=== PATIENT | male | born 1965 | race Caucasian/White ===

== ENCOUNTER 2021-03-10 09:44 | Outpatient (CLI) | payer OTHER, SELFPAY ==
--- NOTE | 2021-03-10 | NMCV_ITS ---
NM lew perf SPECT r/s* [id number] Sundeep Crowder Age: 56 Gender: M : 1965 Exam Date: 03/10/2021 08:11 Ordering Phys: Tato Arciniega Technologist: MAIKOL Ambrosio Exam Location: [facility] Indications: CHEST PAIN STRESS TEST Please see separate stress test report in [facility] for full findings IMAGE PROTOCOL Rest/Stress 1 Exercise Day Radiopharmaceutical Dose (mCi) Administration Site Administered by Rest: Tc-99m 10.6 IV MAIKOL Heller Sestamibi Stress:Tc-99m 32.4 IV MAIKOL Heller Sestamimic Rest: 10-Mar-2021 60 Discovery 630 Stress: 10-Mar-2021 30 Discovery 630 Radiopharmaceutical was injected at 96 % maximum heart rate. Images obtained in supine and prone position. SPECT RESULTS Technical Quality: Excellent Raw Data Analysis: Normal Image Corrections: No attenuation or motion correction applied Summed Stress Score: 0 Summed Rest Score: 0 Summed Difference Score: 0 PERFUSION FINDINGS Medium-sized area of fixed perfusion for noted in basal to mid inferior and inferolateral wall in the absence of wall motion abnormality appears to be an artifact FUNCTIONAL RESULTS (calculated via Gated SPECT) Stress Image LV EF (%): 82 Stress EDV (mL):65 TID: 0.73 Stress ESV (mL):12 Rest Image LV EF (%): 82 FUNCTIONAL FINDINGS: There is normal left ventricular systolic function. IMPRESSIONS This study is negative for ischemia. EKG segment will be documented separately. Chiki Sanches MD (Electronically Signed) Final Date: 10 March 2021 18:40 S
== END 2021-03-10 09:45 | disposition home or self-care (01) ==
LOC: CDL 03-13 09:54
PROVIDERS: PCP Family Medicine; Visit Provider Clinical Nurse Specialist Adult Health
DX: R07.9 Chest pain, unspecified (principal)
CPT/HCPCS: 78452; A9500

== ENCOUNTER → 2022-08-31 12:11 | Outpatient (BNVA) | payer OTHER, SELFPAY | PROVIDERS: PCP Family Medicine; Visit Provider Family Medicine | DX: R10.13 Epigastric pain (principal); R11.0 Nausea; E03.9 Hypothyroidism, unspecified | CPT/HCPCS: 80053; 80061; 82150; 85007; 85025; 86140 ==

== ENCOUNTER 2022-09-07 09:36 | Outpatient (CLI) | payer OTHER, SELFPAY ==
--- NOTE | 2022-09-07 10:00 | US_ITS ---
WS: [id number] Abdomen ultrasound, 09/07/2022 Clinical Data: R10.13 - Epigastric pain Comparison: None. Findings: The pancreas shows no cyst, pseudocyst or evidence of pancreatitis. The liver shows no cysts, masses or dilated intrahepatic ducts. Liver is normal in size with consiste nt echotexture. There is normal portal venous flow. The gallbladder has numerous stones. There is thickening of the gallbladder wall can indicate acute a nd/or chronic cholecystitis.. The wall measures 1.4 cm with no pericholecystic fluid. The common bile duct is 0.9 cm and no intraductal abnormalities are noted. The right kidney is 11.2 cm. No cysts, masses or hydronephrosis is seen. The left kidney is 10.4 cm. No cysts, masses or hydronephrosis is seen. The abdominal aorta is not dilated and the inferior vena cava has normal flow. No vascular abnormalit ies are seen. The spleen measures 10.7 cm and there are no intrasplenic masses or capsular abnormalities. US/US abdomen complete* [id number] Impression: 1. Cholelithiasis. 2. Thickened gallbladder wall which can represent acute and/or chronic cholecys titis. 3. Enlarged common bile duct which can indicate an intraductal obstruction or s tone.
== END 2022-09-07 09:37 | disposition home or self-care (01) ==
PROVIDERS: PCP Family Medicine; Visit Provider Family Medicine
DX: K80.20 Calculus of gallbladder without cholecystitis without obstruction (principal); R10.13 Epigastric pain
CPT/HCPCS: 76700; 80053; 80061; 82150; 85007; 85025; 86140